=== PATIENT | female | born 1985 | race Caucasian/White ===

== ENCOUNTER 2018-01-03 17:22 | Emergency (ER) | payer BC, MEDICAID ==
[~2018-01-03] VITALS: Ht 182.9 cm; Wt 84.3 kg
[~2018-01-03 17:22] MED LIST: CEPH500C5 PO; CLON1TAB12 PO; DIVA500T2 PO
[2018-01-03 17:47] VITALS: BP 110/69
[2018-01-03] MEDS ORDERED: CEPH250T PO (19:18)
== END 2018-01-03 19:26 | disposition home or self-care (01) ==
LOC: ER 17:22
DX: H00.011 Hordeolum externum right upper eyelid (principal); Z79.2 Long term (current) use of antibiotics; Z56.0 Unemployment, unspecified
CPT/HCPCS: 99283

== ENCOUNTER 2018-10-25 09:26 | Emergency (ER) | payer BC ==
[~2018-10-25] VITALS: Ht 182.9 cm; Wt 84.1 kg
[~2018-10-25 09:26] MED LIST changes: +CEPH250T PO; -CEPH500C5 PO
[2018-10-25 11:35] VITALS: BP 98/53
== END 2018-10-25 12:11 | disposition home or self-care (01) ==
LOC: ER 09:27
DX: O26.891 Other specified pregnancy related conditions, first trimester (principal); O99.341 Other mental disorders complicating pregnancy, first trimester; R20.0 Anesthesia of skin; R20.2 Paresthesia of skin; F31.9 Bipolar disorder, unspecified; F12.90 Cannabis use, unspecified, uncomplicated; Z87.891 Personal history of nicotine dependence; Z56.0 Unemployment, unspecified; Z79.2 Long term (current) use of antibiotics; Z79.899 Other long term (current) drug therapy; Z3A.08 8 weeks gestation of pregnancy
CPT/HCPCS: 93005; 99284

== ENCOUNTER 2018-11-06 14:17 | Emergency (ER) | payer BC ==
[~2018-11-06] VITALS: Ht 182.9 cm; Wt 84.1 kg
[2018-11-06 14:44] VITALS: BP 117/66
--- NOTE | 2018-11-06 16:11 | NUR ---
pt is 33 yo female c/o vag spotting since 1400, pt is 10 weeks , , had transvag last week at Dr Garza office, "I was dripping blood...now just spotting...using a paper towel", +nausea, did have cramping, has resolved, no recent trauma, waiting to be evaluated by provider
[2018-11-06 16:49] LABS: BASOPHILS # (AUTO) 0.1 X10'3 (0-0.2); BASOPHILS % (AUTO) 0.5 % (0-1); EOSINOPHILS % (AUTO) 0.4 % (0-6); HEMATOCRIT 36.2 % (35.0-45.0); HEMOGLOBIN 12.3 g/dl (12.0-16.0); LYMPHOCYTES % (AUTO) 9.4 % (21-51); MEAN CORPUSCULAR HEMOGLOBIN 31.7 PG (27.0-31.0); MEAN CORPUSCULAR HGB CONC 33.9 g/dL (33.0-36.5); MEAN CORPUSCULAR VOLUME 93.5 FL (78-98); MEAN PLATELET VOLUME 7.7 FL (7.4-10.4); MONOCYTES # (AUTO) 0.5 X10'3 (0-0.9); MONOCYTES % (AUTO) 4.8 % (2-12); NEUTROPHILS # (AUTO) 9.4 X10'3 (1.8-7.7); NEUTROPHILS % (AUTO) 84.9 % (42-75); PLATELET COUNT 212 X10'3 (140-440); RED BLOOD COUNT 3.87 X10'6 (4.20-5.60); RED CELL DISTRIBUTION WIDTH 12.5 % (11.5-14.5); WHITE BLOOD COUNT 11.1 X10'3 (4.5-11.0)
--- NOTE | 2018-11-06 16:54 | NUR ---
breeder hen service technician at bedside
== END 2018-11-06 18:19 | disposition home or self-care (01) ==
LOC: ER 14:17
DX: O20.0 Threatened abortion (principal); F31.9 Bipolar disorder, unspecified; Z56.0 Unemployment, unspecified; Z79.899 Other long term (current) drug therapy; Z3A.10 10 weeks gestation of pregnancy
CPT/HCPCS: 36415; 76801; 84702; 85025; 86900; 86901; 99284

== ENCOUNTER 2019-02-19 20:43 | Emergency (ER) | payer BC, MEDICAID ==
[~2019-02-19] VITALS: Ht 182.9 cm; Wt 88.1 kg
[~2019-02-19 20:43] MED LIST changes: -CEPH250T PO
[2019-02-19] MEDS ORDERED: normal saline 1000ML IV soln IVB ONE (21:05)
[2019-02-19 21:35] LABS: ALANINE AMINOTRANSFERASE 22 U/L (12-78); ALBUMIN 3.1 G/DL (3.4-5.0); ALBUMIN/GLOBULIN RATIO 0.8 (1.1-1.5); ALKALINE PHOSPHATASE 56 IU/L (46-116); ANION GAP 11 (8-16); ASPARTATE AMINO TRANSFERASE 21 U/L (10-37); BILIRUBIN,TOTAL 0.3 MG/DL (0.1-1.0); BLOOD UREA NITROGEN 5 MG/DL (7-18); BUN/CREATININE RATIO 10.9 (6.6-38.0); CHLORIDE 104 MMOL/L (99-107); CREATININE 0.46 MG/DL (0.40-0.90); GLUCOSE 119 MG/DL (70-104); MAGNESIUM 1.7 MG/DL (1.5-2.4); POTASSIUM 3.3 MMOL/L (3.5-5.1); SODIUM 138 MMOL/L (135-145); TOTAL CARBON DIOXIDE 22.9 MMOL/L (24-32); eGFR > 90 ML/MIN
[2019-02-19 21:39] LABS: BASOPHILS % (AUTO) 0.3 % (0-1); EOSINOPHILS # (AUTO) 0.1 X10'3 (0-0.9); EOSINOPHILS % (AUTO) 1.2 % (0-6); HEMATOCRIT 30.6 % (35.0-45.0); HEMOGLOBIN 10.4 g/dl (12.0-16.0); LYMPHOCYTES % (AUTO) 24.1 % (21-51); MEAN CORPUSCULAR HEMOGLOBIN 31.6 PG (27.0-31.0); MEAN CORPUSCULAR HGB CONC 34.1 g/dL (33.0-36.5); MEAN CORPUSCULAR VOLUME 92.7 FL (78-98); MEAN PLATELET VOLUME 7.6 FL (7.4-10.4); MONOCYTES # (AUTO) 0.6 X10'3 (0-0.9); MONOCYTES % (AUTO) 6.8 % (2-12); NEUTROPHILS # (AUTO) 5.5 X10'3 (1.8-7.7); NEUTROPHILS % (AUTO) 67.6 % (42-75); PLATELET COUNT 229 X10'3 (140-440); RED CELL DISTRIBUTION WIDTH 12.5 % (11.5-14.5); WHITE BLOOD COUNT 8.2 X10'3 (4.5-11.0)
[2019-02-19] MEDS ORDERED: potassium Cl 20 mEq SR tablet PO STA (21:44)
[2019-02-19 21:59] VITALS: BP 126/70
[2019-02-19 22:06] LABS: CLARITY,URINE CLEAR (Clear); COLOR,URINE YELLOW (Yellow); GLUCOSE, URINE 500 mg/dl (Neg); KETONES,URINE TRACE mg/dl (Neg); LEUKOCYTE ESTERASE ,URINE NEGATIVE (Neg); NITRITES, URINE NEGATIVE (Neg); OCCULT BLOOD,URINE NEGATIVE (Neg); PROTEIN,URINE NEGATIVE (Neg); UROBILINOGEN,URINE 0.2 E.U/dL (0.2-1.0)
[2019-02-19 22:11] LABS: UA COLLECTION TYPE CLN CATCH MIDSTREAM
== END 2019-02-19 22:02 | disposition home or self-care (01) ==
LOC: ER 20:43
DX: O26.892 Other specified pregnancy related conditions, second trimester (principal); E87.6 Hypokalemia; O99.342 Other mental disorders complicating pregnancy, second trimester; F31.9 Bipolar disorder, unspecified; Z56.0 Unemployment, unspecified; Z79.899 Other long term (current) drug therapy; Z3A.25 25 weeks gestation of pregnancy
CPT/HCPCS: 36415; 80053; 81003; 83735; 85025; 93005; 99284; J7030

== ENCOUNTER 2025-03-06 00:07 | Emergency (ER) | payer MEDICAID ==
[~2025-03-06] VITALS: Ht 182.9 cm; Wt 88.5 kg
--- NOTE | 2025-03-06 01:28 | RADIOLOGY REPORT ---
PROCEDURE: DI NECK FOR SOFT TISSUES Exam Date: 03/06/2025 12:35 AM History: Pain Comparison Study: None TECHNIQUE: Soft Tissue Neck: AP and lateral views. FINDINGS: No evidence of soft tissue swelling or radiopaque foreign body. Epiglottis appears normal. IMPRESSION: 1. Negative soft tissue neck.
--- NOTE | 2025-03-06 03:38 | Physician Documentation ---
History of Present Illness ~ Chief Complaint: Neck pain Stated Complaint: STIFF NECK Time Seen by MD: 03:36 OK to notify your PCP?: Yes Primary Medical Doctor: Dr. Pisano Source: patient, RN/MD, RN notes reviewed, old records Mode of Arrival: POV Exam Limitations: no limitations HPI 39-year-old female presents to the ER complains of stick neck pain. Yesterday she woke up with symptoms of being sore at seven which was tingling. She has been having neck problems, grinding. She notes movement makes it worse. She took two ibuprofen earlier today. She arrived to the ER at 11:30 a.m. and is saying she feels better. She has a previous MRI of the head for vertigo, migra amaya, dysphagia. Medication Reconciliation Allergies: Coded Allergies: No Known Allergies (Unverified , 03/06/25) Scheduled Clonazepam (Clonazepam), PO HS, (Reported) Cyclobenzaprine* (Cyclobenzaprine*), 1 TAB PO HS Divalproex Sodium (Depakote), 500 MG PO DAILY, (Reported) Naproxen (Naproxen), 1 TAB PO Q12H Past Medical History Past Medical History: Migraine, Vertigo, Pneumonia, Previously Intubated, *PSYCH*, Bipolar Other Past Medical History: Dysphagia Past Surgical History: no surgical history Alcohol Use: None Drug Use: none Lives with: Family Lives In: Home Occupation: unemployed Review of Systems All Other Systems at this time: Reviewed and Negative ROS As stated above in the HPI, otherwise all systems are reviewed and negative. Physical Exam Vital Signs: RN Vital Signs have been reviewed: Yes, Temperature: 97.8, Source: Temporal, Heart Rate: 92, Respiratory Rate: 18, BP: 129/78, Pulse Oximetry: 100, Weight: 88.500 Physical Exam General: The patient is well developed, well nourished, nontoxic appearing and is in no acute distress. Skin: [place], warm and dry with no rashes. HEENT: Head was normocephalic and atraumatic. Eyes - pupils equal, round, reac tive to light and accommodation. Extraocular movements were intact. Conjunctivae were nonicteric. The mouth and oropharynx were clear with moist mucous membranes. There were no pharyngeal exudates or erythema. Neck: Right appears spinal tenderness on exam.. There was no jugular venous distention, lymphadenopathy, thyromegaly or masses. Chest: Clear to auscultation bilaterally without wheezes, rales or rhonchi. No accessory muscle use. No dullness to percussion. Heart: Rate regular and rhythmic. S1, S2. No murmurs. Palpation of the chest wall was normal. No rubs or thrills. Abdomen: Soft, nontender and nondistended. Positive bowel sounds. No guarding or rebound. No hepatosplenomegaly or palpable masses. Extremities: No cyanosis, clubbing or edema. The patient moves all extremities. Pulses were equal and symmetric. Neurologic: Decreased range of motion secondary to pain. Psychologic: The patient was oriented to person, place and time. The patient demonstrated appropriate judgement and insight. Progress Results/Orders Reviewed/noted all lab results: Yes Results/Orders Orders - RYAN SEGAL MD Neck For Soft Tissues (03/06/25 00:38) Completed Orders - RYAN SEGAL MD Neck For Soft Tissues (03/06/25 00:38) Naproxen Tablet (Naprosyn Tablet) (03/06/25 03:50) Cyclobenzaprine Tablet (Flexeril Tablet) (03/06/25 03:50) Medications Received in ER Medications (Trade) Dose Ordered Sig/Rajat Route PRN Reason Start Time Stop Time Status Last Admin Dose Admin (Naprosyn tablet) 500 mg ONCE ONCE PO 03/06/25 03:50 03/06/25 03:51 DC 03/06/25 03:55 500 MG (Flexeril tablet) 10 mg ONCE ONCE PO 03/06/25 03:50 03/06/25 03:51 DC 03/06/25 03:55 10 MG Vital Signs 03/06/25 03/06/25 03/06/25 00:08 03:55 04:03 Temp 97.8 97.8 Pulse 92 79 72 Resp 18 17 18 B/P (MAP) 129/78 108/71 (83) 108/71 Pulse Ox 100 99 99 O2 Flow Rate 0 Re-Evaluation Re-Evaluation : Re-Evaluation: Improved Progress Patient was seen and examined. Patient was given reassurance. Patient was complaining of some grinding neck pain. She has had workup for headaches and has a MRI of her head. But never has had significant neck pain before. She has has had bouts. She woke up with her symptoms only took anti-inflammatories wants went back to sleep the next day and now she woke up with severe pain once again but her main concern was with a grinding. Patient received an x-ray she had good alignment of vertebral bodies no obvious signs of spasms. Patient's symptoms were improving any way. She received anti-inflammatories muscle re laxants and was discharged home. Infectious etiologies were considered but unlikely. She has no fever no sore throat. No meningeal signs. No trauma. No neurological deficits or complaints. EKG/XRAY/CT/US/VASC/MRI Bone/Soft Tissue X-Ray (Spine) : Interpreted By: radiologist Views: 1 VIEW Additional Comment DIAGNOSTIC RADIOLOGY Patient: ANUSHA DOZIER Medical Record: [id number] [facility] : 1985, Age: 39 Sex: Female Location: ER Patient Status: [facility] ER Service Date/Time: 03/06/2537 Ordering Physician: RYAN SEGAL MD Exam: NECK FOR SOFT TISSUES PROCEDURE: DI NECK FOR SOFT TISSUES Exam Date: 03/06/2025 12:35 AM History: Pain Comparison Study: None TECHNIQUE: Soft Tissue Neck: AP and lateral views. FINDINGS: No evidence of soft tissue swelling or radiopaque foreign body. Epiglottis appears normal. IMPRESSION: 1. Negative soft tissue neck. 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 03/06/25 03:49 Attestation: The note accurately reflects work and decisions made by me.Ryan Segal MD 03/06/25 03:38 RYAN SEGAL MD Mar 06, 2025 03:38 HAYLEY SEGAL Mar 06, 2025 03:49
[2025-03-06] MEDS ORDERED: NAPR-56 PO (03:45)
[2025-03-06] MEDS ORDERED: CYCL-1 PO (03:45)
[2025-03-06 04:03] VITALS: BP 108/71; PULSE 72; RESP 18; TEMP 97.8; O2SAT 99
== END 2025-03-06 04:06 | disposition home or self-care (01) ==
LOC: ER 00:08
DX: M54.2 Cervicalgia (principal); J38.3 Other diseases of vocal cords; G43.909 Migraine, unspecified, not intractable, without status migrainosus; F31.9 Bipolar disorder, unspecified; Z87.01 Personal history of pneumonia (recurrent); Z79.899 Other long term (current) drug therapy; Z56.0 Unemployment, unspecified
CPT/HCPCS: 70360; 99283